=== PATIENT | male | born 1955 | race Caucasian/White ===

== ENCOUNTER 2020-05-02 10:37 | Inpatient (IN) | payer BC ==
[~2020-05-02] VITALS: Ht 167.6 cm; Wt 141.1 kg
--- NOTE | ~2020-05-02 | OP ---
[address] [place] [address] OPERATIVE REPORT Name: MALACHIRAMILAPRITESHUZMA R Room: [address] IN M.R.#: [id number] Admission: 05/02/20 Attend Phys: Pablito Corrigan MD Discharge: Date of : 59 Report #: [id number] THIS REPORT FOR: cc: Long Gandhi Bradley L. DO ~ Dave Myers MD DATE OF SERVICE: 05/20/2020 PREOPERATIVE DIAGNOSIS: Perforated cecum. POSTOPERATIVE DIAGNOSIS: Perforated cecum. OPERATION: Exploratory laparotomy with right hemicolectomy and ileostomy. SURGEON: Dave Myers MD SECOND SURGEON: Liz Alarcon MD ANESTHESIA: General. ESTIMATED BLOOD LOSS: 300 mL. SPECIMEN: Right colon and transverse colon. DRAINS: 19-Sri Lankan round. DESCRIPTION OF PROCEDURE: After informed consent was obtained, the patient was brought to the operating room and placed supine. SCDs were placed and working, preoperative antibiotics were administered, general anesthesia was induced. The abdomen was prepped and draped in the usual sterile fashion. Midline laparotomy incision was made from approximately 3 cm below the xiphoid down to the umbilicus. Fascia was incised and a retractor was placed. Exploration was undertaken. The small bowel appeared mostly normal. The entire colon was dilated. I identified the transverse colon. I then ran it proximally and in the proximal ascending colon, there was a perforation. This was a large perforation and large amount of stool was leaking out. This was all suctioned. I then copiously irrigated this area with normal saline. The colon was then mobilized medially by incising the white line of Toldt. This allowed for visualization of the entire right colon. It was ischemic and again there was a large perforation. I found a spot approximately fpc across the transverse colon. Although, it was somewhat dilated, it did appear healthy at this point. It was transected with a FAISAL blue load stapler. The mesentery was then ligated using the LigaSure. This was taken all the way to the ileum. The ileum was transected 10 cm from the cecum. The [place] [address] OPERATIVE REPORT Name: UZMA AGUILAR Room: [address] IN [facility].#: [id number] Admission: 05/02/20 Attend Phys: Pablito Corrigan MD Discharge: Date of : 59 Report #: [id number] copiously irrigated the right abdominal sidewall to get as much of the stool out of the abdomen as possible. I placed a 19-Sri Lankan round drain in the right pericolic gutter. An incision was made in the right upper quadrant for the ileostomy. The fascia was incised and the ileostomy was brought out through the hole. The fascia was then closed with a running 0 PDS suture. Skin was closed with lazara. Altagracia ileostomy was then performed using 3-0 Vicryl. Ostomy appliance was placed. Sterile dressings were applied. COMPLICATIONS: None. DISPOSITION: The patient was taken to ICU in critical condition on Damián-Synephrine drip. By: [id number] Myers MD /nt
[~2020-05-02 10:37] MED LIST: ASPIR 8181 MG PO; ASPIRIN325 PO; AVAPRO 150 MG150 M1 PO; BENEFIBER1 EAC1 PO; BENTYL 10 MG CA10 M1 PO; BENTYL 20 MG TA20 M1 PO; BIOTIN PO; CALCIUM WITH D3 PO; CINNAMON500 MG PO; FENOFIBRATE134 MG PO; FISH OIL 1,001000 M2 PO; FISH OIL 1,2001 EAC4 PO; GARLIC1000 MG PO; GLIMEPIRIDE4 MG PO; HYDROCHLOROTHIA25 M2 PO; HYTRIN 5 M5 MG/1 CAP PO; L-LYSINE PO; LOSARTAN POTAS100 MG PO; METFORMIN HCL1000 MG PO; METOPROLOL SUC100 MG PO; NIACIN ER500 MG PO; NIACIN500 MG PO; NORCO 5-325 TA1 EAC1 PO; ONE DAILY MULT1 EAC3 PO; OXYCODONE HCL 55 MG PO; PROLOPRIM100 MG PO; RED YEAST RICE600 MG PO; REQUIP0.5 MG PO; SPIRONOLACTONE25 M1 PO; UNITHROID88 MCG PO; VIAGRA100 MG PO; VITAMIN D31000 UNI2 PO; WOMEN'S 50+ DA1 EAC1 PO; XARELTO10 MG PO; ZOCOR20 MG PO
[2020-05-02 10:40] VITALS: BP 159/54
[2020-05-02 11:14] LABS: ABSOLUTE LYMPHOCYTES 0.9 thou/uL (0.8-5.3); ABSOLUTE MONOCYTES 0.7 thou/uL (0.0-1.2); ABSOLUTE NEUTROPHILS 6.2 thou/uL (1.6-8.1); BASOPHILS 0.4 %; HEMATOCRIT 41.4 % (42.0-52.0); LYMPHOCYTES 11.4 %; MCH 28.1 pg (26.0-34.0); MCHC 33.8 g/dL (28.0-37.0); MCV 83.1 fL (80.0-100.0); MONOCYTES 8.7 %; MPV 7.1 fl. (7.2-11.1); NUCLEATED RBCS 0 /100WBC; PLATELET COUNT* 239 thou/uL (150-400); POLYS 79.5 %; RBC 4.98 mil/uL (4.50-6.00); RDW-CV 15.6 % (10.5-14.5); WBC 7.8 thou/uL (4.0-11.0)
[2020-05-02 11:23] LABS: CALCIUM 7.8 mg/dL (8.5-10.1); CREATININE 2.3 mg/dL (0.6-1.3); POTASSIUM 3.4 mmol/L (3.5-5.1)
[2020-05-02 11:27] LABS: INR 1.1
[2020-05-02 11:34] LABS: ALBUMIN 2.9 g/dL (3.4-5.0); TOTAL BILIRUBIN 0.6 mg/dL (<0.1-1.0); TOTAL PROTEIN 7.7 g/dL (6.4-8.2)
[2020-05-02 11:34] LABS: PCO2 31.3 mmHg (35.0-45.0); pH 7.429 (7.340-7.450)
[2020-05-02 11:38] LABS: PO2 53.5 mmHg (75.0-100.0)
[2020-05-02 12:50] VITALS: BP 121/58
[2020-05-02 13:00] VITALS: BP 129/63
[2020-05-02 16:24] VITALS: BP 126/68
--- NOTE | 2020-05-02 16:46 | EKG ---
[place] [address] ELECTROCARDIOGRAM REPORT Name: UZMA AGUILAR Room: [address] ADM IN .R.#: [id number] Admission: 05/02/20 Attend Phys: Pablito Corrigan, Discharge: Date of : 59 Date of Service: 05/02/20 1115 Report #: [id number] THIS REPORT FOR: //name// [facility] ED Test Date: 2020-05-02 Test Time: 11:15:19 Pat Name: UZMA AGUILAR Department: Room: [facility] Gender: M Centerless Grinder Set Up Operator: DINESH : 1955 Requested By: Bonifacio Alonso Order Number: [id number] MD: Ulises Arriaga Measurements Intervals [place] Rate: 97 P: -30 [place]: 158 QRS: -28 QRSD: 94 T: 69 QT: 338 QTc: 430 Interpretive Statements Sinus rhythm Borderline left axis deviation Compared to ECG 01/14/2015 10:05:00 No significant changes Electronically Signed On 05-02-2020 16:46:44 ROAD CONSULTANT by Ulises Arriaga [email or web address] <ELECTRONICALLY SIGNED> By: Ulises Arriaga MD, [facility] 05/02/20 1646 1115 1115 Ulises Arriaga MD, [facility] /EPI
[2020-05-02 17:27] LABS: CALCIUM 7.7 mg/dL (8.5-10.1); MAGNESIUM 2.4 mg/dL (1.8-2.4); POTASSIUM 3.3 mmol/L (3.5-5.1)
[2020-05-02 19:55] LABS: INFLUENZA A ANTIGEN Negative (Negative); INFLUENZA B ANTIGEN Negative (Negative)
[2020-05-02 20:07] LABS: BE -3.8 mmol/L (-2 to +3); PCO2 36.6 mmHg (35.0-45.0); PO2 63.2 mmHg (75.0-100.0); pH 7.371 (7.340-7.450)
[2020-05-02 20:30] VITALS: BP 124/65
[2020-05-02 21:00] VITALS: BP 141/78; BP 147/75
[2020-05-03] VITALS (7 sets, daily range): BP systolic 127–171; BP diastolic 62–86
[2020-05-03 05:52] LABS: ABSOLUTE LYMPHOCYTES 0.6 thou/uL (0.8-5.3); ABSOLUTE MONOCYTES 0.3 thou/uL (0.0-1.2); ABSOLUTE NEUTROPHILS 4.9 thou/uL (1.6-8.1); BASOPHILS 0.1 %; HEMATOCRIT 38.4 % (42.0-52.0); HEMOGLOBIN 12.9 gm/dL (14.0-18.0); LYMPHOCYTES 10.9 %; MCH 27.9 pg (26.0-34.0); MCHC 33.6 g/dL (28.0-37.0); MCV 82.9 fL (80.0-100.0); MONOCYTES 5.9 %; MPV 7.2 fl. (7.2-11.1); NUCLEATED RBCS 0 /100WBC; PLATELET COUNT* 257 thou/uL (150-400); POLYS 83.1 %; RBC 4.63 mil/uL (4.50-6.00); RDW-CV 16.2 % (10.5-14.5); WBC 5.9 thou/uL (4.0-11.0)
[2020-05-03 06:07] LABS: CALCIUM 7.9 mg/dL (8.5-10.1); CREATININE 1.8 mg/dL (0.6-1.3); POTASSIUM 3.5 mmol/L (3.5-5.1)
--- NOTE | 2020-05-03 14:41 | CON ---
[address] [address] CONSULTATION Name: UZAM AGUILAR Room: [address] IN M.R.#: [id number] Admission: 05/02/20 Attend Phys: Pablito Corrigan MD Discharge: Date of : 59 Report #: [id number] THIS REPORT FOR: //name// cc: Long Gandhi Bradley L. DO ~ DATE OF SERVICE: 05/02/2020 CONSULT REQUESTED BY: Dr. Pablito Corrigan. INDICATION FOR CONSULTATION: Acute hypoxemic respiratory failure. HISTORY OF PRESENT ILLNESS: This is a 64-year-old gentleman with past medical history as mentioned below. He is a lifetime nonsmoker. His previous known creatinine from 2015 is 1.0. He does have a history of obstructive sleep apnea, on a CPAP at home. 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 There is a known outbreak of COVID in the facility. The patient is now admitted with respiratory distress and is able to provide a limited history. He is on high-flow oxygen with the BiPAP in place and appears to have limited understanding of his condition. He was taking the BiPAP off when I entered the room. Previously had been up to 80% BiPAP to maintain O2 saturation in the low 90s. His chest x-ray shows ARDS. The patient also is in acute renal failure. He has been having fever and chills. The patient could not answer orientation questions and was fairly restless at the time of my evaluation, he is unable to provide a further history or review of systems. PAST MEDICAL HISTORY: DVTs, status post IVC filter. It is not known to me as to whether the filter is still in place or not, LKA x 2, right knee replaced, sleep apnea, uses a CPAP at home, diabetes, hernia repair. SOCIAL HISTORY: No known history of smoking, ethanol abuse or drug abuse. CURRENT MEDICATIONS: List in [employer] reviewed. HOME MEDICATIONS: List in [employer] reviewed. FAMILY HISTORY: No pertinent family history. PHYSICAL EXAMINATION: GENERAL: He was restless. He was removing BiPAP, previously had required high-flow oxygen with BiPAP as above. Various FiO2 at one point was saturating on 40%. Has needed 80% at another occasion, but he has been removing the BiPAP, which makes it difficult to ascertain his actual oxygen needs. VITAL SIGNS: The pulse of 95, blood pressure 129/63. He was breathing around 26-28. He has a low-grade fever [place] 37.7. [place] [address] CONSULTATION Name: UZMA AGUILAR Room: [address] IN M.R.#: [id number] Admission: 05/02/20 Attend Phys: Pablito Corrigan MD Discharge: Date of : 59 Report #: [id number] HEENT: Head is normocephalic and atraumatic. NECK: Does not show raised JVP. CHEST: Breath sounds bilaterally equal, decreased. No added sounds. HEART: Regular, no murmur. ABDOMEN: Soft and nontender. EXTREMITIES: Lower extremities do show trace to 1+ edema, no calf tenderness. LABORATORY DATA: The [facility] lab work [facility] and these are reviewed. ASSESSMENT AND PLAN: 1. Acute hypoxemic respiratory failure. The patient is in acute renal failure and therefore, I do agree with keeping him well hydrated. We will keep him on a BiPAP while asleep and p.r.n. if he is able to he can be on high flow or a heated high-flow nasal cannula when awake. We will follow up with an arterial blood gas this evening if the patient continues to decline, then I will have a low threshold of endotracheally intubating him. 2. Acute respiratory distress syndrome. The patient is COVID negative on the antigen, PCR is pending. He has had an outbreak of COVID in the facility he works at. This may be the likely etiology of his ARDS. I would treat him with corticosteroids as well as broad-spectrum antibiotics, which are ordered. Considering the severity of the patient's disease I am starting with very broad spectrum antibiotics. We will cut back later. Various cultures and serologies have also been ordered. 3. Pulmonary infiltrates/suspected COVID-19. See discussion as above. 4. Acute renal failure. Note that his baseline creatinine was 1.0 from 2015. I do not have a more recent creatinine. He is on IV fluids and I agree with this. 5. Suspected COVID-19. I agree with treating him for COVID-19 at this time. He is on remdesivir. He is receiving 1 unit of convalescent plasma. I have subsequently inclined to give him one more unit. 6. Past medical history of DVT, status post IVC filter. We will do an x-ray of the abdomen tomorrow morning to see if the infiltrates is still seen, and as to whether it is still present. 7. Deep venous thrombosis prophylaxis, Lovenox for now and reassess in a.m. 8. Gastrointestinal prophylaxis, Protonix. The patient is critically ill at this time. [facility] [address] [place] [address] CONSULTATION Name: UZMA AGUILAR Room: [address]#: [id number] Admission: 05/02/20 Attend Phys: Pablito Corrigan MD Discharge: Date of : 59 Report #: [id number] Total time spent providing critical care to this patient today exceeds 41 minutes. <ELECTRONICALLY SIGNED> By: Kashif Mar MD 05/03/20 1441 1704 1730Kashif Mar MD /nt
[2020-05-03 16:00] LABS: CALCIUM 7.9 mg/dL (8.5-10.1); CREATININE 1.7 mg/dL (0.6-1.3); MAGNESIUM 2.7 mg/dL (1.8-2.4); POTASSIUM 3.2 mmol/L (3.5-5.1)
--- NOTE | 2020-05-03 17:58 | 2DMMODE ---
[place] [address] 2 D/M-MODE ECHOCARDIOGRAM Name: UZMA AGUILAR Room: [address] ADM IN .R.#: [id number] Admission: 05/02/20 Attend Phys: Pablito Corrigan, Discharge: Date of : 59 Date of Service: 05/03/20 1758 Report #: [id number] THIS REPORT FOR: cc: Long Gandhi Bradley L. DO Liston, Michael J. MD [facility] ~ APPROVED REPORT Study performed: 05/03/2020 14:40:53 EXAM: Comprehensive 2D, Doppler, and color-flow Echocardiogram Patient Location: In-Patient Room #: [facility] Status: routine BSA: 2.38 HR: 72 bpm BP: 138/70 mmHg Rhythm: NSR Other Information Study Quality: Good Indications hypoxia 2D Dimensions IVSd: 15.53 (7-11mm) LVOT Diam: 19.56 (18-24mm) LVDd: 54.85 mm PWd: 13.50 (7-11mm) Ascending Ao: 37.02 (22-36mm) LVDs: 34.20 (25-40mm) Aortic Root: 31.64 mm Volumes Left Atrial Volume (Systole) LA ESV Index: 24.90 mL/m2 Aortic Valve AoV Peak Lucas.: 2.98 m/s AO Peak Gr.: 35.57 mmHg LVOT Max P.82 mmHg AO Mean Gr.: 20.27 mmHg LVOT Mean P.31 mmHg LVOT Max V: 1.31 m/s AO V2 VTI: 54.64 cm LVOT Mean V: 0.83 m/s KYLIE (VTI): 1.61 cm2 LVOT V1 VTI: 29.37 [place] [address] 2 D/M-MODE ECHOCARDIOGRAM Name: UZMA AGUILAR Room: [address] IN [facility]#: [id number] Admission: 05/02/20 Attend Phys: Pablito Corrigan, Discharge: Date of : 59 Date of Service: 05/03/20 1758 Report #: [id number] Mitral Valve E/A Ratio: 1.46 MV Decel. Time: 194.76 ms MV E Max Lucas.: 0.76 m/s MV PHT: 56.48 ms MVA (PHT): 3.90 cm2 TDI E/Lateral E': 6.91 E/Medial E': 8.44 Medial E' Lucas.: 0.09 m/s Lateral E' Lucas.: 0.11 m/s Pulmonary Valve PV Peak Lucas.: 1.21 m/s PV Peak Gr.: 5.82 mmHg Left Ventricle The left ventricle is normal size. There is normal LV segmental wall motion. Moderate concentric left ventricular hypertrophy. Left ventricular systolic function is normal. LVEF is 55-60%. Transmitral Doppler flow pattern suggests impaired LV relaxation. Right Ventricle The right ventricle is normal size. The right ventricular systolic function is normal. Atria Left atrium is mildly dilated. Right atrium is mildly dilated. Aortic Valve The Aortic valve is sclerotic. Mild aortic regurgitation. Mild to moderate aortic stenosis. Mitral Valve The mitral valve is normal in structure. There is no mitral valve regurgitation noted. No evidence of mitral valve stenosis. Tricuspid Valve The tricuspid valve is normal in structure. Trace tricuspid regurgitation. Unable to assess PA pressure. Pulmonic Valve The pulmonary valve is normal in structure. There is no pulmonic valvular regurgitation[place] [address] 2 D/M-MODE ECHOCARDIOGRAM Name: KYLEUZMA AMATO Room: [address]#: [id number] Admission: 05/02/20 Attend Phys: Pablito Corrigan, Discharge: Date of : 59 Date of Service: 05/03/20 1758 Report #: [id number] The aortic root is normal in size. IVC is not well visualized. Pericardium There is no pericardial effusion. <Conclusion> The left ventricle is normal size. Moderate concentric left ventricular hypertrophy. Left ventricular systolic function is normal. LVEF is 55-60%. Transmitral Doppler flow pattern suggests impaired LV relaxation. Left atrium is mildly dilated. Right atrium is mildly dilated. The Aortic valve is sclerotic. Mild aortic regurgitation. Mild to moderate aortic stenosis. Trace tricuspid regurgitation. Unable to assess PA pressure. <ELECTRONICALLY SIGNED> By: Rogelio Castillo MD, FACC 05/03/201757 57 59 Rogelio Castillo MD, FACC /INF
[2020-05-04] VITALS: BP 166/79
[2020-05-04 04:00] VITALS: BP 186/87
[2020-05-04 05:10] LABS: HEMOGLOBIN 13.1 gm/dL (14.0-18.0); MCH 27.1 pg (26.0-34.0); MCHC 32.9 g/dL (28.0-37.0); MCV 82.6 fL (80.0-100.0); MPV 7.3 fl. (7.2-11.1); NUCLEATED RBCS 0 /100WBC; PLATELET COUNT* 323 thou/uL (150-400); RBC 4.84 mil/uL (4.50-6.00); RDW-CV 15.7 % (10.5-14.5); WBC 12.1 thou/uL (4.0-11.0)
[2020-05-04 06:33] LABS: ALBUMIN 2.5 g/dL (3.4-5.0); CALCIUM 8.1 mg/dL (8.5-10.1); CREATININE 1.5 mg/dL (0.6-1.3); POTASSIUM 3.7 mmol/L (3.5-5.1); TOTAL BILIRUBIN 0.4 mg/dL (<0.1-1.0); TOTAL PROTEIN 7.3 g/dL (6.4-8.2)
[2020-05-04 06:53] LABS: ABSOLUTE LYMPHOCYTES 0.7 thou/uL (0.8-5.3); ABSOLUTE MONOCYTES 0.1 thou/uL (0.0-1.2); ABSOLUTE NEUTROPHILS 11.3 thou/uL (1.6-8.1); ANISOCYTOSIS 1+; PLATELET ESTIMATE ADEQUATE; POIKILOCYTOSIS 1+
[2020-05-04 08:00] VITALS: BP 148/75
[2020-05-04 09:16] LABS: BE -3.3 mmol/L (-2 to +3); PCO2 37.7 mmHg (35.0-45.0); PO2 75.6 mmHg (75.0-100.0); pH 7.372 (7.340-7.450)
[2020-05-04 11:24] VITALS: BP 158/87
[2020-05-04 16:36] VITALS: BP 150/84
[2020-05-04 20:00] VITALS: BP 157/83
[2020-05-05] VITALS (33 sets, daily range): BP systolic 77–158; BP diastolic 36–90
[2020-05-05 12:30] LABS: BE -1.4 mmol/L (-2 to +3); PCO2 37.7 mmHg (35.0-45.0); PO2 76.2 mmHg (75.0-100.0); pH 7.403 (7.340-7.450)
[2020-05-05 12:55] LABS: ABSOLUTE LYMPHOCYTES 0.5 thou/uL (0.8-5.3); ABSOLUTE MONOCYTES 0.7 thou/uL (0.0-1.2); ABSOLUTE NEUTROPHILS 11.9 thou/uL (1.6-8.1); BASOPHILS 0.1 %; HEMATOCRIT 41.6 % (42.0-52.0); HEMOGLOBIN 13.7 gm/dL (14.0-18.0); LYMPHOCYTES 3.5 %; MCH 27.6 pg (26.0-34.0); MCHC 32.8 g/dL (28.0-37.0); MCV 84.1 fL (80.0-100.0); MONOCYTES 5.6 %; NUCLEATED RBCS 0 /100WBC; PLATELET COUNT* 348 thou/uL (150-400); POLYS 90.8 %; RBC 4.95 mil/uL (4.50-6.00); WBC 13.1 thou/uL (4.0-11.0)
[2020-05-05 13:03] LABS: CALCIUM 8.1 mg/dL (8.5-10.1); CREATININE 1.5 mg/dL (0.6-1.3); POTASSIUM 3.8 mmol/L (3.5-5.1)
[2020-05-05 13:08] LABS: ALBUMIN 2.4 g/dL (3.4-5.0); TOTAL BILIRUBIN 0.4 mg/dL (<0.1-1.0)
[2020-05-05 15:35] LABS: PO2 87.4 mmHg (75.0-100.0)
[2020-05-05 15:42] LABS: PCO2 57.6 mmHg (35.0-45.0); pH 7.245 (7.340-7.450)
[2020-05-06] VITALS (39 sets, daily range): BP systolic 91–128; BP diastolic 48–76
[2020-05-06 05:07] LABS: ABSOLUTE LYMPHOCYTES 0.4 thou/uL (0.8-5.3); ABSOLUTE MONOCYTES 0.5 thou/uL (0.0-1.2); ABSOLUTE NEUTROPHILS 9.1 thou/uL (1.6-8.1); BASOPHILS 0.2 %; HEMATOCRIT 40.8 % (42.0-52.0); HEMOGLOBIN 13.4 gm/dL (14.0-18.0); LYMPHOCYTES 4.1 %; MCH 27.5 pg (26.0-34.0); MCHC 32.9 g/dL (28.0-37.0); MCV 83.7 fL (80.0-100.0); MONOCYTES 4.7 %; MPV 6.9 fl. (7.2-11.1); NUCLEATED RBCS 0 /100WBC; PLATELET COUNT* 316 thou/uL (150-400); RBC 4.87 mil/uL (4.50-6.00); RDW-CV 16.3 % (10.5-14.5)
[2020-05-06 05:30] LABS: ALBUMIN 2.3 g/dL (3.4-5.0); CALCIUM 8.2 mg/dL (8.5-10.1); CREATININE 1.7 mg/dL (0.6-1.3); POTASSIUM 4.6 mmol/L (3.5-5.1); TOTAL BILIRUBIN 0.4 mg/dL (<0.1-1.0); TOTAL PROTEIN 6.3 g/dL (6.4-8.2)
[2020-05-06 06:04] LABS: PREALBUMIN 17.9 mg/dL (18.0-35.7)
--- NOTE | 2020-05-06 11:39 | EKG ---
[place] [address] ELECTROCARDIOGRAM REPORT Name: LAURENUZMA R Room: [address] ADM IN M.R.#: [id number] Admission: 05/02/20 Attend Phys: Pablito Corrigan, Discharge: Date of : 59 Date of Service: 05/05/20 1509 Report #: [id number] THIS REPORT FOR: //name// [facility] Test Date: 2020-05-05 Test Time: 15:09:23 Pat Name: UZMA AGUILAR Department: Room: [address] Gender: M Game Producer: SEBASTIÁN : 1955 Requested By: Pablito Corrigan Order Number: [id number] Reading MD: Ibrahima Coates Measurements Intervals [place] Rate: 165 P: [place]: QRS: -19 QRSD: 94 T: 142 QT: 278 QTc: 461 Interpretive Statements Atrial fibrillation with rapid V-rate Borderline left axis deviation Anteroseptal infarct, age indeterminate Baseline wander in lead(s) V2 Compared to ECG 05/02/2020 11:15:19 Sinus rhythm no longer present Electronically Signed On 05-06-2020 11:38:59 CIGAR MAKING SUPERVISOR by Ibrahima Coates [email or web address] <ELECTRONICALLY SIGNED> By: Ibrahima Coates MD, [facility] 05/06/20 1138 1509 1509 Ibrahima Coates MD, [facility] /EPI
[2020-05-06 12:36] LABS: BE -0.5 mmol/L (-2 to +3); PCO2 38.4 mmHg (35.0-45.0); PO2 79.2 mmHg (75.0-100.0); pH 7.411 (7.340-7.450)
[2020-05-07] VITALS (33 sets, daily range): BP systolic 96–204; BP diastolic 51–102
[2020-05-07 02:06] LABS: MYCOPLASMA PNEUMONIA IgG 459 U/mL (0-99); MYCOPLASMA PNEUMONIA IgM <770 U/mL (0-769)
[2020-05-07 04:58] LABS: ALBUMIN 2.1 g/dL (3.4-5.0); CALCIUM 7.8 mg/dL (8.5-10.1); CREATININE 1.4 mg/dL (0.6-1.3); POTASSIUM 4.7 mmol/L (3.5-5.1); TOTAL BILIRUBIN 0.4 mg/dL (<0.1-1.0); TOTAL PROTEIN 6.2 g/dL (6.4-8.2)
[2020-05-07 05:02] LABS: ABSOLUTE LYMPHOCYTES 0.3 thou/uL (0.8-5.3); ABSOLUTE MONOCYTES 0.5 thou/uL (0.0-1.2); ABSOLUTE NEUTROPHILS 8.2 thou/uL (1.6-8.1); BASOPHILS 0.1 %; HEMOGLOBIN 13.3 gm/dL (14.0-18.0); LYMPHOCYTES 3.7 %; MCH 27.7 pg (26.0-34.0); MCHC 32.4 g/dL (28.0-37.0); MCV 85.5 fL (80.0-100.0); MONOCYTES 5.5 %; MPV 7.3 fl. (7.2-11.1); NUCLEATED RBCS 0 /100WBC; PLATELET COUNT* 275 thou/uL (150-400); POLYS 90.7 %; RBC 4.79 mil/uL (4.50-6.00); RDW-CV 16.2 % (10.5-14.5); WBC 9.1 thou/uL (4.0-11.0)
[2020-05-07 08:56] LABS: BE -1.5 mmol/L (-2 to +3); PCO2 46.1 mmHg (35.0-45.0); pH 7.344 (7.340-7.450)
[2020-05-07 08:58] LABS: PO2 59.2 mmHg (75.0-100.0)
--- NOTE | 2020-05-07 10:44 | CON ---
[address] [address] CONSULTATION Name: UZMA AGUILAR Room: [address] IN M.R.#: [id number] Admission: 05/02/20 Attend Phys: Pablito Corrigan MD Discharge: Date of : 59 Report #: [id number] THIS REPORT FOR: //name// cc: Long Gandhi Bradley L. DO ~ DATE OF SERVICE: 05/06/2020 CARDIOLOGY CONSULTATION HISTORY OF PRESENT ILLNESS: The patient is a 64-year-old white male who I was asked to see in the ICU today after he was noted to be in atrial fibrillation. The history is obtained from the chart. There are no family members available. The patient is currently sedated on the ventilator. The patient has been here to [facility]. He was admitted here in 12/2014 for knee surgery. He has a long history of sleep apnea, diabetes, hypertension, and morbid obesity. The patient was brought to the Emergency Room 4 days ago by private vehicle. He has been coughing with shortness of breath. He apparently tested positive for COVID on 04/24. On admission, he was intubated for hypoxia. He remains on the ventilator. Two days ago, he went into rapid atrial fibrillation. Cardiology consultation requested. PAST MEDICAL HISTORY: Significant for sleep apnea, diabetes, history of DVT with previous IVC filter in place. He has had a hernia repair. He has a history of hyperlipidemia, hypertension, morbid obesity. CURRENT MEDICATIONS: Include metformin, spironolactone, glimepiride, Synthroid, terazosin, fenofibrate, niacin, simvastatin, hydrochlorothiazide, metoprolol, losartan. ALLERGIES: He has no known drug allergies. SOCIAL HISTORY: He is a nonsmoker. No alcohol abuse. REVIEW OF SYSTEMS: No history of stroke, asthma, liver disease, kidney disease or cancer. PHYSICAL EXAMINATION: GENERAL: Revealed a large middle-aged male, lying in bed. He was intubated. VITAL SIGNS: He had a blood pressure of 100/60, pulse is 110 and irregular. He is afebrile. HEENT: He was anicteric. Conjunctivae are pink. Mucous membranes moist. NECK: Veins difficult to assess due to obesity. CHEST: Clear to auscultation. CARDIOVASCULAR: [place], [place] [address] CONSULTATION Name: MALACHISARAH GARCIAJuan Francisco Conklin Room: [address]#: [id number] Admission: 05/02/20 Attend Phys: Pablito Corrigan MD Discharge: Date of : 59 Report #: [id number] ABDOMEN: Obese. EXTREMITIES: Had no pitting edema. SKIN: Cool and dry. NEUROLOGIC: He is not arousable. RADIOLOGICAL DATA: His ECG on admission showed a sinus rhythm, nonspecific T-wave changes. ECG performed on 05/05 showed atrial fibrillation, rapid ventricular response rate, poor R-wave progression. His workup so far, he had an echocardiogram done 3 days ago after admission that showed ejection fraction 60%, left ventricular hypertrophy, biatrial enlargement, aortic sclerosis. There was evidence of mild aortic stenosis with a peak gradient across the aortic valve of 35 mmHg. His chest x-ray on admission, normal heart size, basilar infiltrates. His chest x-ray from yesterday showed bilateral infiltrates suggestion of multifocal pneumonia, no pleural effusions. He had previous venous Doppler study in 2015 that showed no DVT. LABORATORY WORK: Sodium 146, BUN 56, creatinine 1.7, glucose 271. Liver function studies are normal. Troponin 0.32. BNP 607. White blood cell count 10.0, hemoglobin 13.4, hematocrit 40.8. IMPRESSION AND RECOMMENDATIONS: 1. Atrial fibrillation. At this time, I would aim for rate control. I would give digoxin because of his low blood pressure. I would consider anticoagulation. 2. Mild aortic stenosis. 3. Morbid obesity. 4. History of hypertension. The patient has been on diuretic. I would hold at this time due to low blood pressure. 5. Diabetes. 6. Hyperlipidemia. The patient has been on a statin drug. 7. Sleep apnea. The patient on CPAP. 8. COVID-19. The patient is currently intubated. 9. History of deep venous thrombosis. The patient has an IVC filter in place. <ELECTRONICALLY SIGNED> By: Ibrahima Coates MD, [facility] 05/07/20 1044 0827 0904Daronni Coates MD, FAC /nt
--- NOTE | 2020-05-07 16:15 | EKG ---
[place] [address] ELECTROCARDIOGRAM REPORT Name: UZMA AGUILAR Room: [address] ADM IN M.R.#: [id number] Admission: 05/02/20 Attend Phys: Pablito Corrigan, Discharge: Date of : 59 Date of Service: 05/07/20 1439 Report #: [id number] THIS REPORT FOR: //name// [facility] Test Date: 2020-05-07 Test Time: 14:39:16 Pat Name: UZMA AGUILAR Department: Room: [address] Gender: M Automotive Service Porter: : 1955 Requested By: Ibrahima Coates Order Number: [id number] Kristel MD: Ibrahima Coates Measurements Intervals [place] Rate: 92 P: [place]: QRS: -15 QRSD: 91 T: 13 QT: 332 QTc: 411 Interpretive Statements Atrial fibrillation Borderline left axis deviation Compared to ECG 05/05/2020 15:09:23 rate has slowed Electronically Signed On 05-07-2020 16:14:47 GERONTOLOGY AIDE by Ibrahima Coates [email or web address] <ELECTRONICALLY SIGNED> By: Ibrahima Coates MD, FAC 05/07/20 1614 1439 1439 Ibrahima Coates MD, [facility] /EPI
[2020-05-07 17:28] LABS: BE 1.4 mmol/L (-2 to +3); PCO2 49.2 mmHg (35.0-45.0); PO2 77.9 mmHg (75.0-100.0); pH 7.366 (7.340-7.450)
[2020-05-08] VITALS (25 sets, daily range): BP systolic 142–191; BP diastolic 64–98
[2020-05-08 05:28] LABS: HEMATOCRIT 42.3 % (42.0-52.0); HEMOGLOBIN 13.6 gm/dL (14.0-18.0); MCH 27.5 pg (26.0-34.0); MCHC 32.2 g/dL (28.0-37.0); MCV 85.4 fL (80.0-100.0); MPV 7.4 fl. (7.2-11.1); NUCLEATED RBCS 0 /100WBC; PLATELET COUNT* 271 thou/uL (150-400); RBC 4.95 mil/uL (4.50-6.00); RDW-CV 16.3 % (10.5-14.5); WBC 8.6 thou/uL (4.0-11.0)
[2020-05-08 05:48] LABS: ALBUMIN 2.3 g/dL (3.4-5.0); CALCIUM 7.7 mg/dL (8.5-10.1); CREATININE 1.2 mg/dL (0.6-1.3); MAGNESIUM 2.7 mg/dL (1.8-2.4); POTASSIUM 4.5 mmol/L (3.5-5.1); TOTAL BILIRUBIN 0.4 mg/dL (<0.1-1.0); TOTAL PROTEIN 6.1 g/dL (6.4-8.2)
[2020-05-08 08:15] LABS: BE 1.6 mmol/L (-2 to +3); PCO2 49.5 mmHg (35.0-45.0); PO2 70.4 mmHg (75.0-100.0); pH 7.367 (7.340-7.450)
[2020-05-08 08:27] LABS: ABSOLUTE EOSINOPHILS 0.1 thou/uL (0.0-0.7); ABSOLUTE LYMPHOCYTES 0.6 thou/uL (0.8-5.3); ABSOLUTE MONOCYTES 0.3 thou/uL (0.0-1.2); ABSOLUTE NEUTROPHILS 7.7 thou/uL (1.6-8.1); METAMYELOCYTES 1 %; PLATELET ESTIMATE ADEQUATE
[2020-05-08 08:28] LABS: ANISOCYTOSIS 1+; MICROCYTES 1+
--- NOTE | 2020-05-08 10:19 | EKG ---
[place] [address] ELECTROCARDIOGRAM REPORT Name: UZMA AGUILAR Room: [address] ADM IN M.R.#: [id number] Admission: 05/02/20 Attend Phys: Pablito Corrigan, Discharge: Date of : 59 Date of Service: 05/08/20 0944 Report #: [id number] THIS REPORT FOR: //name// [facility] Test Date: 2020-05-08 Test Time: 09:44:44 Pat Name: UZMA AGUILAR Department: Room: [address] Gender: M Melt Down Furnace Operator: BREANA : 1955 Requested By: Ibrahima Coates Order Number: [id number] Reading MD: Ibrahima Coates Measurements Intervals [place] Rate: 120 P: MD: QRS: -13 QRSD: 93 T: 157 QT: 271 QTc: 383 Interpretive Statements Atrial fibrillation Ventricular premature complex Repol abnrm suggests ischemia, anterolateral Compared to ECG 05/07/2020 14:39:16 Ventricular premature complex(es) now present rate has increased Possible ischemia now present Electronically Signed On 05-08-2020 10:18:50 CONSULTANT LUXURY AND AUTO. VICE PRESIDENT JAGUAR [employer] (EX ) by Ibrahima Coates [email or web address] <ELECTRONICALLY SIGNED> By: Ibrahima Coates MD, FAC 05/08/20 1018 0944 0944 Ibrahima Coates MD, FAC /EPI
[2020-05-09] VITALS (19 sets, daily range): BP systolic 135–189; BP diastolic 58–85
[2020-05-09 06:08] LABS: ABSOLUTE LYMPHOCYTES 0.5 thou/uL (0.8-5.3); ABSOLUTE MONOCYTES 0.5 thou/uL (0.0-1.2); ABSOLUTE NEUTROPHILS 6.4 thou/uL (1.6-8.1); BASOPHILS 0.2 %; HEMATOCRIT 42.4 % (42.0-52.0); HEMOGLOBIN 13.6 gm/dL (14.0-18.0); LYMPHOCYTES 6.8 %; MCH 27.8 pg (26.0-34.0); MCHC 32.2 g/dL (28.0-37.0); MCV 86.4 fL (80.0-100.0); MONOCYTES 6.9 %; MPV 7.4 fl. (7.2-11.1); NUCLEATED RBCS 0 /100WBC; PLATELET COUNT* 230 thou/uL (150-400); POLYS 86.1 %; WBC 7.4 thou/uL (4.0-11.0)
[2020-05-09 06:18] LABS: ALBUMIN 2.1 g/dL (3.4-5.0); CALCIUM 7.6 mg/dL (8.5-10.1); CREATININE 1.1 mg/dL (0.6-1.3); MAGNESIUM 2.6 mg/dL (1.8-2.4); POTASSIUM 4.9 mmol/L (3.5-5.1); TOTAL BILIRUBIN 0.5 mg/dL (<0.1-1.0); TOTAL PROTEIN 5.9 g/dL (6.4-8.2)
[2020-05-09 06:22] LABS: PHOSPHORUS* 2.9 mg/dL (2.5-4.9)
[2020-05-09 08:18] LABS: BE 3.3 mmol/L (-2 to +3); PCO2 46.3 mmHg (35.0-45.0); PO2 71.1 mmHg (75.0-100.0)
[2020-05-09 17:01] LABS: PCO2 44.2 mmHg (35.0-45.0); PO2 85.1 mmHg (75.0-100.0); pH 7.419 (7.340-7.450)
[2020-05-09 17:49] LABS: CALCIUM 8.4 mg/dL (8.5-10.1); CREATININE 1.3 mg/dL (0.6-1.3); MAGNESIUM 2.6 mg/dL (1.8-2.4); POTASSIUM 4.3 mmol/L (3.5-5.1)
[2020-05-10] VITALS (33 sets, daily range): BP systolic 102–213; BP diastolic 54–87
[2020-05-10 02:38] LABS: URINE BILIRUBIN NEGATIVE (Negative); URINE BLOOD 2+ (Negative); URINE CLARITY CLEAR; URINE COLOR YELLOW; URINE GLUCOSE-RANDOM 2+ (Negative); URINE KETONES NEGATIVE (Negative); URINE LEUKOCYTES-REFLEX NEGATIVE (Negative); URINE NITRITE-REFLEX NEGATIVE (Negative); URINE PROTEIN TRACE (Negative); URINE UROBILINOGEN 0.2 E.U./dl (0.2-1.0)
[2020-05-10 03:50] LABS: SQUAMOUS 0-3 Few /LPF (0-3)
[2020-05-10 03:51] LABS: BACTERIA-REFLEX 1-9 Few /HPF (None Seen); CASTS None Seen /LPF (None Seen); CRYSTALS None Seen /LPF (None Seen); MUCUS 0-3 Light strn/LPF (None Seen); URINE WBC-REFLEX 0-5 Rare /HPF (0-5)
[2020-05-10 03:52] LABS: YEAST-REFLEX Present (None Seen)
[2020-05-10 05:54] LABS: ABSOLUTE LYMPHOCYTES 0.6 thou/uL (0.8-5.3); ABSOLUTE MONOCYTES 0.6 thou/uL (0.0-1.2); ABSOLUTE NEUTROPHILS 6.2 thou/uL (1.6-8.1); BASOPHILS 0.2 %; EOSINOPHILS 0.1 %; HEMATOCRIT 41.4 % (42.0-52.0); HEMOGLOBIN 13.3 gm/dL (14.0-18.0); LYMPHOCYTES 8.6 %; MCH 27.6 pg (26.0-34.0); MCHC 32.1 g/dL (28.0-37.0); MCV 86.1 fL (80.0-100.0); MONOCYTES 7.4 %; MPV 7.7 fl. (7.2-11.1); NUCLEATED RBCS 0 /100WBC; PLATELET COUNT* 204 thou/uL (150-400); POLYS 83.7 %; RBC 4.81 mil/uL (4.50-6.00); RDW-CV 16.1 % (10.5-14.5); WBC 7.4 thou/uL (4.0-11.0)
[2020-05-10 06:05] LABS: PHOSPHORUS* 3.8 mg/dL (2.5-4.9)
[2020-05-10 06:07] LABS: ALBUMIN 2.3 g/dL (3.4-5.0); CALCIUM 7.8 mg/dL (8.5-10.1); CREATININE 1.1 mg/dL (0.6-1.3); MAGNESIUM 2.5 mg/dL (1.8-2.4); POTASSIUM 4.1 mmol/L (3.5-5.1); TOTAL BILIRUBIN 0.5 mg/dL (<0.1-1.0)
[2020-05-10 08:50] LABS: BE 3.7 mmol/L (-2 to +3); PCO2 49.9 mmHg (35.0-45.0); PO2 71.5 mmHg (75.0-100.0); pH 7.392 (7.340-7.450)
[2020-05-10 09:45] LABS: CALCIUM 7.6 mg/dL (8.5-10.1); CREATININE 1.1 mg/dL (0.6-1.3); POTASSIUM 4.1 mmol/L (3.5-5.1)
[2020-05-10 15:30] LABS: BE 3.4 mmol/L (-2 to +3); PO2 76.8 mmHg (75.0-100.0); pH 7.376 (7.340-7.450)
[2020-05-10 15:46] LABS: CALCIUM 7.8 mg/dL (8.5-10.1); MAGNESIUM 2.4 mg/dL (1.8-2.4); POTASSIUM 3.5 mmol/L (3.5-5.1)
[2020-05-11] VITALS (13 sets, daily range): BP systolic 130–188; BP diastolic 65–86
[2020-05-11 05:23] LABS: ABSOLUTE LYMPHOCYTES 0.6 thou/uL (0.8-5.3); ABSOLUTE MONOCYTES 0.4 thou/uL (0.0-1.2); BASOPHILS 0.2 %; HEMATOCRIT 44.8 % (42.0-52.0); HEMOGLOBIN 14.6 gm/dL (14.0-18.0); LYMPHOCYTES 7.5 %; MCH 27.9 pg (26.0-34.0); MCHC 32.6 g/dL (28.0-37.0); MCV 85.4 fL (80.0-100.0); MONOCYTES 5.4 %; MPV 8.4 fl. (7.2-11.1); NUCLEATED RBCS 0 /100WBC; PLATELET COUNT* 178 thou/uL (150-400); POLYS 86.9 %; RBC 5.25 mil/uL (4.50-6.00); RDW-CV 16.5 % (10.5-14.5)
[2020-05-11 06:51] LABS: ALBUMIN 2.7 g/dL (3.4-5.0); CALCIUM 8.1 mg/dL (8.5-10.1); CREATININE 1.1 mg/dL (0.6-1.3); MAGNESIUM 2.4 mg/dL (1.8-2.4); POTASSIUM 4.6 mmol/L (3.5-5.1); TOTAL BILIRUBIN 0.6 mg/dL (<0.1-1.0); TOTAL PROTEIN 6.5 g/dL (6.4-8.2)
[2020-05-11 06:54] LABS: TRIGLYCERIDE 235 mg/dL (<150)
[2020-05-11 07:50] LABS: PHOSPHORUS* 3.3 mg/dL (2.5-4.9)
[2020-05-11 09:02] LABS: BE 4.1 mmol/L (-2 to +3); PCO2 45.8 mmHg (35.0-45.0); PO2 68.8 mmHg (75.0-100.0); pH 7.424 (7.340-7.450)
[2020-05-11 15:35] LABS: BE 1.1 mmol/L (-2 to +3); PCO2 41.1 mmHg (35.0-45.0); PO2 71.9 mmHg (75.0-100.0); pH 7.415 (7.340-7.450)
[2020-05-12] VITALS (17 sets, daily range): BP systolic 123–174; BP diastolic 59–74
[2020-05-12 06:29] LABS: HEMATOCRIT 44.5 % (42.0-52.0); HEMOGLOBIN 14.5 gm/dL (14.0-18.0); MCH 28.1 pg (26.0-34.0); MCHC 32.6 g/dL (28.0-37.0); MCV 86.1 fL (80.0-100.0); MPV 8.6 fl. (7.2-11.1); RBC 5.17 mil/uL (4.50-6.00); RDW-CV 16.1 % (10.5-14.5); WBC 9.3 thou/uL (4.0-11.0)
[2020-05-12 06:39] LABS: ALBUMIN 2.4 g/dL (3.4-5.0); CALCIUM 7.7 mg/dL (8.5-10.1); MAGNESIUM 2.3 mg/dL (1.8-2.4); POTASSIUM 4.9 mmol/L (3.5-5.1); TOTAL BILIRUBIN 0.5 mg/dL (<0.1-1.0); TOTAL PROTEIN 5.7 g/dL (6.4-8.2)
[2020-05-12 08:40] LABS: BE 3.3 mmol/L (-2 to +3); PCO2 41.1 mmHg (35.0-45.0); PO2 67.5 mmHg (75.0-100.0); pH 7.446 (7.340-7.450)
[2020-05-13] VITALS (29 sets, daily range): BP systolic 116–169; BP diastolic 55–72
[2020-05-13 04:23] LABS: BE 0.7 mmol/L (-2 to +3); PCO2 42.5 mmHg (35.0-45.0); PO2 70.9 mmHg (75.0-100.0)
[2020-05-13 05:51] LABS: HEMATOCRIT 44.1 % (42.0-52.0); HEMOGLOBIN 14.3 gm/dL (14.0-18.0); MCH 28.3 pg (26.0-34.0); MCHC 32.4 g/dL (28.0-37.0); MCV 87.1 fL (80.0-100.0); MPV 8.3 fl. (7.2-11.1); RBC 5.06 mil/uL (4.50-6.00); RDW-CV 16.6 % (10.5-14.5); WBC 10.2 thou/uL (4.0-11.0)
[2020-05-13 06:08] LABS: ALBUMIN 2.3 g/dL (3.4-5.0); CALCIUM 7.2 mg/dL (8.5-10.1); CREATININE 1.5 mg/dL (0.6-1.3); MAGNESIUM 2.4 mg/dL (1.8-2.4); POTASSIUM 5.4 mmol/L (3.5-5.1); TOTAL BILIRUBIN 0.6 mg/dL (<0.1-1.0); TOTAL PROTEIN 5.5 g/dL (6.4-8.2)
[2020-05-13 06:10] LABS: TRIGLYCERIDE 214 mg/dL (<150)
[2020-05-13 13:20] LABS: URINE BILIRUBIN NEGATIVE (Negative); URINE BLOOD 3+ (Negative); URINE CLARITY CLEAR; URINE COLOR YELLOW; URINE GLUCOSE-RANDOM NEGATIVE (Negative); URINE KETONES NEGATIVE (Negative); URINE LEUKOCYTES-REFLEX NEGATIVE (Negative); URINE NITRITE-REFLEX NEGATIVE (Negative); URINE PROTEIN TRACE (Negative); URINE SPECIFIC GRAVITY 1.025 (1.005-1.030); URINE UROBILINOGEN 0.2 E.U./dl (0.2-1.0)
[2020-05-13 13:27] LABS: BACTERIA-REFLEX 1-9 Few /HPF (None Seen); CASTS None Seen /LPF (None Seen); CRYSTALS None Seen /LPF (None Seen); MUCUS None Seen strn/LPF (None Seen); SQUAMOUS 4-10 Moderate /LPF (0-3); URINE RBC >20 Many /HPF (0-2); URINE WBC-REFLEX 0-5 Rare /HPF (0-5)
[2020-05-13 18:57] LABS: CALCIUM 7.5 mg/dL (8.5-10.1); CREATININE 1.4 mg/dL (0.6-1.3); MAGNESIUM 2.5 mg/dL (1.8-2.4); POTASSIUM 5.2 mmol/L (3.5-5.1)
[2020-05-14] VITALS (25 sets, daily range): BP systolic 106–195; BP diastolic 51–93
[2020-05-14 06:34] LABS: ABSOLUTE MONOCYTES 0.6 thou/uL (0.0-1.2); ABSOLUTE NEUTROPHILS 8.6 thou/uL (1.6-8.1); BASOPHILS 0.2 %; HEMATOCRIT 40.5 % (42.0-52.0); HEMOGLOBIN 13.3 gm/dL (14.0-18.0); LYMPHOCYTES 9.8 %; MCH 28.6 pg (26.0-34.0); MCHC 32.9 g/dL (28.0-37.0); MONOCYTES 5.7 %; MPV 9.8 fl. (7.2-11.1); NUCLEATED RBCS 0 /100WBC; PLATELET COUNT* 82 thou/uL (150-400); POLYS 84.3 %; RBC 4.66 mil/uL (4.50-6.00); RDW-CV 16.5 % (10.5-14.5); WBC 10.2 thou/uL (4.0-11.0)
[2020-05-14 08:33] LABS: BE 1.3 mmol/L (-2 to +3); PCO2 46.6 mmHg (35.0-45.0)
[2020-05-14 08:35] LABS: PO2 55.1 mmHg (75.0-100.0)
[2020-05-14 10:03] LABS: ALBUMIN 2.8 g/dL (3.4-5.0); CALCIUM 7.3 mg/dL (8.5-10.1); CREATININE 1.3 mg/dL (0.6-1.3); MAGNESIUM 2.9 mg/dL (1.8-2.4); TOTAL BILIRUBIN 0.6 mg/dL (<0.1-1.0); TOTAL PROTEIN 5.7 g/dL (6.4-8.2)
[2020-05-14 22:14] LABS: BE -2.2 mmol/L (-2 to +3); PCO2 38.3 mmHg (35.0-45.0); pH 7.386 (7.340-7.450)
[2020-05-14 22:23] LABS: PO2 124.6 mmHg (75.0-100.0)
[2020-05-15] VITALS (22 sets, daily range): BP systolic 94–179; BP diastolic 53–85
[2020-05-15 04:34] LABS: HEMATOCRIT 40.2 % (42.0-52.0); HEMOGLOBIN 13.1 gm/dL (14.0-18.0); MCH 27.9 pg (26.0-34.0); MCHC 32.5 g/dL (28.0-37.0); MCV 85.8 fL (80.0-100.0); MPV 9.1 fl. (7.2-11.1); NUCLEATED RBCS 0 /100WBC; PLATELET COUNT* 73 thou/uL (150-400); RBC 4.69 mil/uL (4.50-6.00); RDW-CV 16.1 % (10.5-14.5); WBC 12.1 thou/uL (4.0-11.0)
[2020-05-15 04:49] LABS: CALCIUM 7.6 mg/dL (8.5-10.1); CREATININE 1.3 mg/dL (0.6-1.3); PHOSPHORUS* 3.8 mg/dL (2.5-4.9); POTASSIUM 4.3 mmol/L (3.5-5.1)
[2020-05-15 05:04] LABS: ALBUMIN 2.7 g/dL (3.4-5.0); CALCIUM 7.3 mg/dL (8.5-10.1); CREATININE 1.3 mg/dL (0.6-1.3); MAGNESIUM 2.9 mg/dL (1.8-2.4); POTASSIUM 4.3 mmol/L (3.5-5.1); TOTAL BILIRUBIN 0.5 mg/dL (<0.1-1.0); TOTAL PROTEIN 5.4 g/dL (6.4-8.2)
[2020-05-15 06:23] LABS: ABSOLUTE LYMPHOCYTES 0.6 thou/uL (0.8-5.3); ABSOLUTE MONOCYTES 0.2 thou/uL (0.0-1.2); ABSOLUTE NEUTROPHILS 11.3 thou/uL (1.6-8.1); METAMYELOCYTES 1 %; PLATELET ESTIMATE ADEQUATE
[2020-05-15 08:02] LABS: BE 4.2 mmol/L (-2 to +3); PCO2 44.3 mmHg (35.0-45.0); PO2 78.6 mmHg (75.0-100.0); pH 7.435 (7.340-7.450)
[2020-05-16] VITALS (40 sets, daily range): BP systolic 131–213; BP diastolic 65–98
[2020-05-16 05:18] LABS: ABSOLUTE LYMPHOCYTES 0.7 thou/uL (0.8-5.3); ABSOLUTE MONOCYTES 0.9 thou/uL (0.0-1.2); ABSOLUTE NEUTROPHILS 20.7 thou/uL (1.6-8.1); BASOPHILS 0.2 %; HEMATOCRIT 43.2 % (42.0-52.0); HEMOGLOBIN 13.8 gm/dL (14.0-18.0); LYMPHOCYTES 3.1 %; MCH 27.7 pg (26.0-34.0); MCV 86.5 fL (80.0-100.0); MONOCYTES 4.1 %; NUCLEATED RBCS 0 /100WBC; POLYS 92.6 %; RBC 4.99 mil/uL (4.50-6.00); RDW-CV 16.9 % (10.5-14.5); WBC 22.4 thou/uL (4.0-11.0)
[2020-05-16 05:32] LABS: PLATELET COUNT* 159 thou/uL (150-400)
[2020-05-16 05:44] LABS: ALBUMIN 2.6 g/dL (3.4-5.0); CALCIUM 7.4 mg/dL (8.5-10.1); TOTAL PROTEIN 5.5 g/dL (6.4-8.2)
[2020-05-16 08:00] LABS: BE 1.5 mmol/L (-2 to +3); PCO2 33.3 mmHg (35.0-45.0); PO2 87.2 mmHg (75.0-100.0); pH 7.482 (7.340-7.450)
[2020-05-17] VITALS (23 sets, daily range): BP systolic 117–164; BP diastolic 65–95
[2020-05-17 07:03] LABS: ABSOLUTE LYMPHOCYTES 0.5 thou/uL (0.8-5.3); ABSOLUTE MONOCYTES 0.8 thou/uL (0.0-1.2); ABSOLUTE NEUTROPHILS 16.6 thou/uL (1.6-8.1); BASOPHILS 0.2 %; HEMATOCRIT 43.6 % (42.0-52.0); HEMOGLOBIN 13.7 gm/dL (14.0-18.0); LYMPHOCYTES 2.7 %; MCH 27.9 pg (26.0-34.0); MCHC 31.4 g/dL (28.0-37.0); MCV 88.7 fL (80.0-100.0); MONOCYTES 4.3 %; MPV 9.5 fl. (7.2-11.1); NUCLEATED RBCS 0 /100WBC; PLATELET COUNT* 168 thou/uL (150-400); POLYS 92.8 %; RBC 4.91 mil/uL (4.50-6.00); RDW-CV 17.1 % (10.5-14.5); WBC 17.8 thou/uL (4.0-11.0)
[2020-05-17 07:15] LABS: ALBUMIN 2.6 g/dL (3.4-5.0); CALCIUM 7.4 mg/dL (8.5-10.1); CREATININE 0.9 mg/dL (0.6-1.3); MAGNESIUM 3.1 mg/dL (1.8-2.4); PHOSPHORUS* 3.6 mg/dL (2.5-4.9); POTASSIUM 3.9 mmol/L (3.5-5.1); TOTAL BILIRUBIN 1.4 mg/dL (<0.1-1.0); TOTAL PROTEIN 5.6 g/dL (6.4-8.2)
[2020-05-18] VITALS (25 sets, daily range): BP systolic 115–183; BP diastolic 76–121
[2020-05-18 13:40] LABS: ABSOLUTE BASOPHILS 0.1 thou/uL (0.0-0.2); ABSOLUTE LYMPHOCYTES 0.3 thou/uL (0.8-5.3); ABSOLUTE MONOCYTES 0.6 thou/uL (0.0-1.2); ABSOLUTE NEUTROPHILS 15.6 thou/uL (1.6-8.1); BASOPHILS 0.4 %; HEMATOCRIT 40.2 % (42.0-52.0); HEMOGLOBIN 12.8 gm/dL (14.0-18.0); LYMPHOCYTES 1.9 %; MCH 28.1 pg (26.0-34.0); MCHC 31.8 g/dL (28.0-37.0); MCV 88.4 fL (80.0-100.0); MONOCYTES 3.4 %; MPV 8.8 fl. (7.2-11.1); NUCLEATED RBCS 0 /100WBC; PLATELET COUNT* 164 thou/uL (150-400); POLYS 94.3 %; RBC 4.55 mil/uL (4.50-6.00); RDW-CV 17.1 % (10.5-14.5); WBC 16.5 thou/uL (4.0-11.0)
[2020-05-18 13:48] LABS: CALCIUM 7.6 mg/dL (8.5-10.1); MAGNESIUM 3.2 mg/dL (1.8-2.4); POTASSIUM 3.8 mmol/L (3.5-5.1)
[2020-05-18 15:35] LABS: ALBUMIN 2.5 g/dL (3.4-5.0); DIRECT BILIRUBIN 1.2 mg/dL (<0.1-0.3); TOTAL PROTEIN 5.4 g/dL (6.4-8.2)
[2020-05-19] VITALS (101 sets, daily range): BP systolic 76–239; BP diastolic 31–143
[2020-05-19 02:00] LABS: BE -2.2 mmol/L (-2 to +3); PCO2 32.1 mmHg (35.0-45.0); PO2 112.9 mmHg (75.0-100.0); pH 7.437 (7.340-7.450)
[2020-05-19 07:13] LABS: HEMOGLOBIN 12.5 gm/dL (14.0-18.0); MCH 28.2 pg (26.0-34.0); MCHC 32.1 g/dL (28.0-37.0); MPV 8.3 fl. (7.2-11.1); NUCLEATED RBCS 0 /100WBC; PLATELET COUNT* 137 thou/uL (150-400); RBC 4.43 mil/uL (4.50-6.00); RDW-CV 17.2 % (10.5-14.5); WBC 12.3 thou/uL (4.0-11.0)
[2020-05-19 07:36] LABS: ALBUMIN 2.4 g/dL (3.4-5.0); CALCIUM 7.8 mg/dL (8.5-10.1); CREATININE 1.2 mg/dL (0.6-1.3); MAGNESIUM 3.1 mg/dL (1.8-2.4); POTASSIUM 3.8 mmol/L (3.5-5.1); TOTAL BILIRUBIN 2.1 mg/dL (<0.1-1.0); TOTAL PROTEIN 5.1 g/dL (6.4-8.2)
[2020-05-19 09:27] LABS: ABSOLUTE LYMPHOCYTES 0.1 thou/uL (0.8-5.3); ABSOLUTE MONOCYTES 0.2 thou/uL (0.0-1.2); ABSOLUTE NEUTROPHILS 11.9 thou/uL (1.6-8.1); PLATELET ESTIMATE ADEQUATE
[2020-05-19 13:25] LABS: URINE BILIRUBIN NEGATIVE (Negative); URINE BLOOD 3+ (Negative); URINE CLARITY CLEAR; URINE COLOR YELLOW; URINE GLUCOSE-RANDOM NEGATIVE (Negative); URINE KETONES NEGATIVE (Negative); URINE LEUKOCYTES-REFLEX NEGATIVE (Negative); URINE NITRITE-REFLEX NEGATIVE (Negative); URINE PROTEIN 1+ (Negative); URINE SPECIFIC GRAVITY 1.025 (1.005-1.030)
[2020-05-19 14:11] LABS: SQUAMOUS 0-3 Few /LPF (0-3)
[2020-05-19 14:12] LABS: BACTERIA-REFLEX 1-9 Few /HPF (None Seen); CRYSTALS None Seen /LPF (None Seen); HYALINE CASTS >10 Many /LPF (None Seen); MUCUS >6 Heavy strn/LPF (None Seen); URINE RBC >20 Many /HPF (0-2); URINE WBC-REFLEX 0-5 Rare /HPF (0-5)
[2020-05-19 16:45] LABS: PCO2 32.8 mmHg (35.0-45.0); pH 7.401 (7.340-7.450)
[2020-05-19 16:48] LABS: PO2 216.1 mmHg (75.0-100.0)
[2020-05-19 17:57] LABS: CALCIUM 7.6 mg/dL (8.5-10.1); CREATININE 1.2 mg/dL (0.6-1.3); MAGNESIUM 3.1 mg/dL (1.8-2.4); POTASSIUM 4.4 mmol/L (3.5-5.1)
[2020-05-20] VITALS (60 sets, daily range): BP systolic 25–188; BP diastolic 18–89
[2020-05-20 03:18] LABS: ABSOLUTE LYMPHOCYTES 0.4 thou/uL (0.8-5.3); ABSOLUTE MONOCYTES 0.3 thou/uL (0.0-1.2); ABSOLUTE NEUTROPHILS 9.1 thou/uL (1.6-8.1); BASOPHILS 0.1 %; LYMPHOCYTES 3.7 %; MCH 28.5 pg (26.0-34.0); MCHC 32.6 g/dL (28.0-37.0); MCV 87.5 fL (80.0-100.0); MONOCYTES 2.9 %; MPV 8.6 fl. (7.2-11.1); NUCLEATED RBCS 0 /100WBC; PLATELET COUNT* 109 thou/uL (150-400); POLYS 93.3 %; RBC 3.54 mil/uL (4.50-6.00); RDW-CV 17.2 % (10.5-14.5); WBC 9.8 thou/uL (4.0-11.0)
[2020-05-20 03:23] LABS: HEMOGLOBIN 10.1 gm/dL (14.0-18.0)
[2020-05-20 03:31] LABS: ALBUMIN 2.7 g/dL (3.4-5.0); CALCIUM 7.6 mg/dL (8.5-10.1); CREATININE 1.4 mg/dL (0.6-1.3); TOTAL BILIRUBIN 2.1 mg/dL (<0.1-1.0); TOTAL PROTEIN 5.1 g/dL (6.4-8.2)
[2020-05-20 03:32] LABS: PHOSPHORUS* 4.1 mg/dL (2.5-4.9)
[2020-05-20 03:34] LABS: APTT 29.3 Seconds (25.0-31.3); INR 1.6; PROTIME 15.8 Seconds (9.20-11.50)
[2020-05-20 08:20] LABS: BE -3.9 mmol/L (-2 to +3); PCO2 28.2 mmHg (35.0-45.0); pH 7.447 (7.340-7.450)
[2020-05-20 08:21] LABS: PO2 59.9 mmHg (75.0-100.0)
--- NOTE | 2020-05-20 14:15 | EKG ---
[place] [address] ELECTROCARDIOGRAM REPORT Name: UZMA AGUILAR Room: [address] ADM IN M.R.#: [id number] Admission: 05/02/20 Attend Phys: Pablito Corrigan, Discharge: Date of : 59 Date of Service: 05/20/20 1010 Report #: [id number] THIS REPORT FOR: //name// [facility] Test Date: 2020-05-20 Test Time: 10:10:33 Pat Name: UZMA AGUILAR Department: Room: [address] Gender: M Grout Pump Operator: BREANA : 1955 Requested By: Marycruz Lock Order Number: [id number] Reading MD: Ibrahima Coates Measurements Intervals [place] Rate: 73 P: 7 [place]: 151 QRS: -11 QRSD: 95 T: 182 QT: 424 QTc: 468 Interpretive Statements Sinus rhythm Probable left atrial enlargement Repol abnrm suggests ischemia, anterolateral Compared to ECG 05/08/2020 09:44:44 Atrial fibrillation no longer present Ventricular premature complex(es) no longer present Possible ischemia still present Electronically Signed On 05-20-2020 14:15:33 PITCH WORKER by Ibrahima Coates [email or web address] <ELECTRONICALLY SIGNED> By: Ibrahima Coates MD, FACC 05/20/20 1415 1010 1010 Ibrahima Coates MD, [facility] /EPI
--- NOTE | 2020-05-21 12:30 | CON ---
[address] [address] CONSULTATION Name: UZMA AGUILAR Room: [address] IN M.R.#: [id number] Admission: 05/02/20 Attend Phys: Pablito Corrigan MD Discharge: 05/20/20 Date of : 59 Report #: [id number] THIS REPORT FOR: cc: [place] Bradley L. DO ~ Rigo Durand MD DATE OF SERVICE: 05/18/2020 HISTORY OF PRESENT ILLNESS: This is a pleasant 64-year-old male with past medical history significant for obesity, hypertension, diabetes, obstructive sleep apnea, who presented to the hospital on 05/02 for evaluation of shortness of breath. 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 The GI service has been consulted today for evaluation of abdominal distention. The patient was previously on fentanyl, but this has been stopped for the last 48 hours. The patient is confused, but denies any abdominal pain, nausea, vomiting. As per the nurse charting patient has not had a bowel movement yet today, but he did have two yesterday and the day before two. The patient's bowel movements are soft and loose. These have been tested for C. difficile and were found to be negative. The patient cannot clearly state whether he had a colonoscopy in the past or not. PAST MEDICAL HISTORY: Obesity, hypertension, obstructive sleep apnea and diabetes. PAST SURGICAL HISTORY: Right knee replacement x 2 DVT with inferior vena cava filter placed. SOCIAL HISTORY: No history of smoking, alcohol or recreational drug use. FAMILY HISTORY: Again, reviewed per chart. There is no known history of colon cancer. REVIEW OF SYSTEMS: Unable to obtain because of the patient's mental status. PHYSICAL EXAMINATION: VITAL SIGNS: Temperature 37.8, pulse rate 73, blood pressure 151/97, pulse ox 96% on 6 liters. GENERAL: The patient is awake. He is not oriented to time, place or person. HEENT: Mucous membranes are moist. There is no congestion. LUNGS: Coarse bilateral crepitations. CARDIOVASCULAR: Rate and rhythm regular, S1, S2 [place] [address] CONSULTATION Name: UZMA AGUILAR Room: [address]#: [id number] Admission: 05/02/20 Attend Phys: Pablito Corrigan MD Discharge: 05/20/20 Date of : 59 Report #: [id number] ABDOMEN: Soft, grossly distended, tympanic to percussion. No fluid thrill present. Bowel sounds are present. EXTREMITIES: Warm, well perfused. There is no edema. LABORATORY DATA: Hemoglobin 12.8, hematocrit 40.2, WBC count 16.5, platelet count 164. INR 1.1. Sodium 146, potassium 3.8, chloride 112, bicarbonate 24, BUN 43, creatinine 1, total bilirubin 2, AST 78, ALT 119, alkaline phosphatase 39. IMAGING: Abdominal x-ray done today severe gaseous distention of colon, cecum distended to more than 10 cm. ASSESSMENT AND PLAN: Pleasant 64-year-old male with history of hypertension, diabetes, obstructive sleep apnea, who presented with COVID pneumonia. GI service has been consulted for gross distention of abdomen and ileus. The patient appears to be confined to bed and has a very restricted physical mobility and this significantly impact his gut motility as well. I would recommend giving the patient MiraLax daily, Reglan 5 mg IV t.i.d. I would recommend one dose of neostigmine IV today. Will get daily abdominal x-rays and if his bowel movements do not improve and his abdominal distention does not improve, we can consider colonic decompression. LFT elevation, mild elevation of LFTs noted. This can be seen with COVID. No further investigation is warranted at this time. <ELECTRONICALLY SIGNED> By: Rigo Durand MD 05/21/20 1230 [id number] Durand MD /nt
== END 2020-05-20 19:40 | DRG 853 ==
LOC: M.ERS 10:37 → M.ORTHSURG 11:33 → M.ICU 11:33 → M.TBA-ER 11:33 → M.ORTHSURG 13:01 → M.ICU 05-05 14:16
PROVIDERS: Emergency Medicine; Internal Medicine; Internal Medicine Cardiovascular Disease; Internal Medicine Critical Care Medicine; Internal Medicine Nephrology; Pediatrics; ADMIT Internal Medicine; ATTEND Internal Medicine
PROC: XW13325 Transfusion of Convalescent Plasma (Nonautologous) into Peripheral Vein, Percutaneous Approach, New Technology Group 5 (ICD-10-PCS; principal; 2020-05-02)
PROC: 5A0935A Assistance with Respiratory Ventilation, Less than 24 Consecutive Hours, High Flow/Velocity Cannula (ICD-10-PCS; principal; 2020-05-02)
PROC: XW033E5 Introduction of Remdesivir Anti-infective into Peripheral Vein, Percutaneous Approach, New Technology Group 5 (ICD-10-PCS; principal; 2020-05-02)
PROC: 5A09357 Assistance with Respiratory Ventilation, Less than 24 Consecutive Hours, Continuous Positive Airway Pressure (ICD-10-PCS; principal; 2020-05-02)
PROC: 5A0935A Assistance with Respiratory Ventilation, Less than 24 Consecutive Hours, High Flow/Velocity Cannula (ICD-10-PCS; 2020-05-03)
PROC: 5A09357 Assistance with Respiratory Ventilation, Less than 24 Consecutive Hours, Continuous Positive Airway Pressure (ICD-10-PCS; 2020-05-03)
PROC: 5A09357 Assistance with Respiratory Ventilation, Less than 24 Consecutive Hours, Continuous Positive Airway Pressure (ICD-10-PCS; 2020-05-04)
PROC: 5A0935A Assistance with Respiratory Ventilation, Less than 24 Consecutive Hours, High Flow/Velocity Cannula (ICD-10-PCS; 2020-05-04)
PROC: 5A1955Z Respiratory Ventilation, Greater than 96 Consecutive Hours (ICD-10-PCS; 2020-05-05)
PROC: 0BH17EZ Insertion of Endotracheal Airway into Trachea, Via Natural or Artificial Opening (ICD-10-PCS; 2020-05-05)
PROC: 5A0935A Assistance with Respiratory Ventilation, Less than 24 Consecutive Hours, High Flow/Velocity Cannula (ICD-10-PCS; 2020-05-05)
PROC: 02HV33Z Insertion of Infusion Device into Superior Vena Cava, Percutaneous Approach (ICD-10-PCS; 2020-05-05)
PROC: 5A09357 Assistance with Respiratory Ventilation, Less than 24 Consecutive Hours, Continuous Positive Airway Pressure (ICD-10-PCS; 2020-05-05)
PROC: 4A133B1 Monitoring of Arterial Pressure, Peripheral, Percutaneous Approach (ICD-10-PCS; 2020-05-07)
PROC: 03HY32Z Insertion of Monitoring Device into Upper Artery, Percutaneous Approach (ICD-10-PCS; 2020-05-07)
PROC: 4A133J1 Monitoring of Arterial Pulse, Peripheral, Percutaneous Approach (ICD-10-PCS; 2020-05-07)
PROC: 5A09457 Assistance with Respiratory Ventilation, 24-96 Consecutive Hours, Continuous Positive Airway Pressure (ICD-10-PCS; 2020-05-14)
PROC: 5A0935A Assistance with Respiratory Ventilation, Less than 24 Consecutive Hours, High Flow/Velocity Cannula (ICD-10-PCS; 2020-05-16)
PROC: 5A09357 Assistance with Respiratory Ventilation, Less than 24 Consecutive Hours, Continuous Positive Airway Pressure (ICD-10-PCS; 2020-05-18)
PROC: 5A0935A Assistance with Respiratory Ventilation, Less than 24 Consecutive Hours, High Flow/Velocity Cannula (ICD-10-PCS; 2020-05-18)
PROC: 0BH17EZ Insertion of Endotracheal Airway into Trachea, Via Natural or Artificial Opening (ICD-10-PCS; 2020-05-19)
PROC: 5A1935Z Respiratory Ventilation, Less than 24 Consecutive Hours (ICD-10-PCS; 2020-05-19)
PROC: 0D1B0Z4 Bypass Ileum to Cutaneous, Open Approach (ICD-10-PCS; 2020-05-20)
PROC: 0DTF0ZZ Resection of Right Large Intestine, Open Approach (ICD-10-PCS; 2020-05-20)
DX: A41.89 Other specified sepsis (principal); U07.1 COVID-19; N17.0 Acute kidney failure with tubular necrosis; G93.41 Metabolic encephalopathy; J80 Acute respiratory distress syndrome; J12.89 Other viral pneumonia; K63.1 Perforation of intestine (nontraumatic); Z68.43 Body mass index [BMI] 50.0-59.9, adult; I48.20 Chronic atrial fibrillation, unspecified; K56.7 Ileus, unspecified; E87.0 Hyperosmolality and hypernatremia; I46.9 Cardiac arrest, cause unspecified; I35.0 Nonrheumatic aortic (valve) stenosis; E11.22 Type 2 diabetes mellitus with diabetic chronic kidney disease; E66.01 Morbid (severe) obesity due to excess calories; E78.5 Hyperlipidemia, unspecified; D69.6 Thrombocytopenia, unspecified; I48.0 Paroxysmal atrial fibrillation; I12.9 Hypertensive chronic kidney disease with stage 1 through stage 4 chronic kidney disease, or unspecified chronic kidney disease; N18.9 Chronic kidney disease, unspecified; G47.33 Obstructive sleep apnea (adult) (pediatric); Z96.651 Presence of right artificial knee joint; Z86.718 Personal history of other venous thrombosis and embolism; Z99.81 Dependence on supplemental oxygen; Z79.84 Long term (current) use of oral hypoglycemic drugs; Z79.01 Long term (current) use of anticoagulants; Z79.899 Other long term (current) drug therapy